=== PATIENT | female | born 1950 | race African-American/Black ===

== ENCOUNTER 2018-11-08 10:24 | Day surgery (SDC) | payer OTHER ==
[2018-11-08 12:35] VITALS: BMI 27.8
[2018-11-08 13:03] VITALS: TEMP 98.2
[2018-11-08 14:01] VITALS: BP 144/79; PULSE 68
== END 2018-11-08 12:50 | disposition home or self-care (01) ==
LOC: JASU-SURG 10:24
PROVIDERS: ATTEND Internal Medicine Gastroenterology
PROC: 0DJD8ZZ Inspection of Lower Intestinal Tract, Via Natural or Artificial Opening Endoscopic (ICD-10-PCS; principal; 2018-11-08 11:15)
DX: Z12.11 Encounter for screening for malignant neoplasm of colon (principal)